=== PATIENT | male | born 1965 | race Caucasian/White ===

== ENCOUNTER 2022-08-16 15:48 | Inpatient (IN) | payer OTHER ==
[~2022-08-16] VITALS: Ht 170.2 cm; Wt 107.5 kg
[2022-08-16 15:55] VITALS: BP 109/67
--- NOTE | 2022-08-16 15:59 | NUR ---
PT AMBULATED TO BED 8
--- NOTE | 2022-08-16 16:09 | NUR ---
MD PERRY AT BEDSIDE FOR EVALUATION
[2022-08-16] MEDS ORDERED: DILTIAZEM 25 MG/5 ML VIAL IVP ONE ×2 (16:30→17:10)
[2022-08-16] MEDS ORDERED: NACL 0.9% 1,000 ML IV ONE (16:30)
--- NOTE | 2022-08-16 16:38 | NUR ---
XRAY AT BEDSIDE
[2022-08-16 16:40] LABS: BASOPHILS # (AUTO) 0.1 K/uL (0.00-0.22); BASOPHILS % (AUTO) 0.5 % (0.0-2.0); EOSINOPHILS # (AUTO) 0.1 K/uL (0-0.4); EOSINOPHILS % (AUTO) 1.1 % (0.0-4.0); HEMATOCRIT 45.9 % (36-52); HEMOGLOBIN 15.1 g/dL (12.0-18.0); LYMPHOCYTES # (AUTO) 1.8 K/uL (2.0-11.5); LYMPHOCYTES % (AUTO) 18.9 % (20.5-51.1); MEAN CORPUSCULAR HEMOGLOBIN 31 pg (27-31); MEAN CORPUSCULAR HGB CONC 33 g/dL (33-37); MEAN CORPUSCULAR VOLUME 93.4 fL (80-94); MONOCYTES % (AUTO) 9.8 % (1.7-9.3); NEUTROPHILS # (AUTO) 6.7 K/uL (1.8-7.7); NEUTROPHILS % (AUTO) 69.7 % (42.2-75.2); PLATELET COUNT (AUTO) 266 K/uL (140-450); RED BLOOD CELL COUNT(AUTO) 4.92 MIL/uL (4.20-6.10); RED CELL DISTRIBUTION WIDTH 14.2 % (11.6-13.7); WHITE BLOOD COUNT (AUTO) 9.7 K/uL (4.8-10.8)
--- NOTE | 2022-08-16 16:40 | NUR ---
pt swabbed for covid(leigha). walked and handed to lab
[2022-08-16 16:55] LABS: ANION GAP 13.9 (8-16); CARBON DIOXIDE 27.5 mmol/L (21-32); POTASSIUM 4.4 mmol/L (3.5-5.1)
[2022-08-16] MEDS ORDERED: LEVO0.124 PO (17:17)
[2022-08-16] MEDS ORDERED: SYN.1 PO (17:17)
[2022-08-16] MEDS ORDERED: HYDROcodone/APAP 5/325 MG 1 TAB TAB PO PRN ×2 (18:00→18:15)
[2022-08-16] MEDS ORDERED: MAG SULF 2000 MG/WATER PREMIX 50 ML IV PRN ×2 (18:00→18:15)
[2022-08-16] MEDS ORDERED: MAGNESIUM OXIDE 400 MG TAB PO PRN ×2 (18:00→18:15)
[2022-08-16] MEDS ORDERED: ONDANSETRON 4 MG/2 ML VIAL IVP PRN ×2 (18:00→18:15)
[2022-08-16] MEDS ORDERED: ACETAMINOPHEN 325 MG TAB PO PRN ×2 (18:00→18:15)
[2022-08-16] MEDS ORDERED: POTASSIUM CHLORIDE 10 MEQ TABER PO PRN ×2 (18:00→18:15)
[2022-08-16] MEDS ORDERED: KCL 20 MEQ IN 100 mL PREMIX 200 ML IV PRN ×2 (18:00→18:15)
[2022-08-16] MEDS ORDERED: MORPHINE SULFATE 4 MG/ML SYR IVP PRN ×2 (18:00→18:15)
--- NOTE | 2022-08-16 19:32 | NUR ---
PT RESTING IN BED 8 WAITING FOR A TELE ROOM ON THE FLOOR.
--- NOTE | 2022-08-16 20:30 | NUR ---
[facility]. PATIENT IS ALERT ORIENTED X 4. NO COMPLAIN OF PAIN AT THIS TIME. PIV ON LEFT ANTECUBITAL INTACT AND PATENT. WILL CONTINUE TO MONITOR
[2022-08-16] MEDS ORDERED: METOPROLOL 25 MG TAB PO SCH (21:00)
[2022-08-16] MEDS: METOPROLOL 25 MG TAB PO SCH (21:18)
[2022-08-17] VITALS: BP 108/68
[2022-08-17] MEDS ORDERED: DIGOXIN 0.25 MG/ML AMP IV SCH ×3 (00:35→12:00)
--- NOTE | 2022-08-17 01:15 | NUR ---
NEW ORDER OF DIGOXIN FOR INCREASING HEART RATE. WILL CONTINUE TO MONITOR
[2022-08-17 04:00] VITALS: BP 121/86
[2022-08-17 07:53] VITALS: BP 111/88
[2022-08-17 08:46] LABS: BASOPHILS % (AUTO) 0.5 % (0.0-2.0); EOSINOPHILS # (AUTO) 0.2 K/uL (0-0.4); EOSINOPHILS % (AUTO) 2.4 % (0.0-4.0); HEMATOCRIT 42.6 % (36-52); HEMOGLOBIN 13.6 g/dL (12.0-18.0); LYMPHOCYTES # (AUTO) 1.5 K/uL (2.0-11.5); LYMPHOCYTES % (AUTO) 19.9 % (20.5-51.1); MEAN CORPUSCULAR HEMOGLOBIN 30 pg (27-31); MEAN CORPUSCULAR HGB CONC 32 g/dL (33-37); MEAN CORPUSCULAR VOLUME 95.1 fL (80-94); MONOCYTES # (AUTO) 0.9 K/uL (0.8-1.0); NEUTROPHILS % (AUTO) 65.2 % (42.2-75.2); PLATELET COUNT (AUTO) 222 K/uL (140-450); RED BLOOD CELL COUNT(AUTO) 4.48 MIL/uL (4.20-6.10); RED CELL DISTRIBUTION WIDTH 14.3 % (11.6-13.7); WHITE BLOOD COUNT (AUTO) 7.7 K/uL (4.8-10.8)
[2022-08-17] MEDS: FUROSEMIDE 40 MG/4 ML VIAL IVP SCH ×2 (08:59→17:19)
[2022-08-17] MEDS: METOPROLOL 25 MG TAB PO SCH ×2 (09:00→21:02)
[2022-08-17] MEDS ORDERED: ECOTRIN 81 MG TABEC PO SCH (09:00)
[2022-08-17] MEDS ORDERED: ENOXAPARIN 40 MG/0.4 ML SYR SUBQ SCH ×2 (09:00)
[2022-08-17 09:04] LABS: ALBUMIN 2.8 g/dL (3.4-5.0); CARBON DIOXIDE 32.7 mmol/L (21-32); CREATININE 1.1 mg/dL (0.6-1.3); MAGNESIUM 1.8 mg/dL (1.8-2.4); POTASSIUM 4.7 mmol/L (3.5-5.1); TOTAL BILIRUBIN 0.6 mg/dL (0.0-1.0)
--- NOTE | 2022-08-17 09:32 | NUR ---
PATIENT HAS BEEN SCREENED AND CATEGORIZED LOW NUTRITION RISK. PATIENT WILL BE SEEN WITHIN 7 DAYS OF ADMISSION. 08/16/22-08/23/[address]
[2022-08-17 11:50] VITALS: BP 112/76
[2022-08-17 16:06] VITALS: BP 98/60
--- NOTE | 2022-08-17 19:25 | NUR ---
RECEIVED PATIENT FROM AM NURSE FOR CONTINUITY OF CARE.PT IS STABLE
[2022-08-17 20:00] VITALS: BP 118/89
[2022-08-17] MEDS ORDERED: ENOXAPARIN 100 MG/ML SYR SUBQ SCH (21:00)
[2022-08-18] VITALS: BP 109/76
--- NOTE | 2022-08-18 | NUR ---
PATIENT ASLLEP , NO DISTRESS NOTED
[2022-08-18 04:00] VITALS: BP 107/70
--- NOTE | 2022-08-18 04:00 | NUR ---
CHECK ON THE PATIENT AND NOTED TO HAVE SUDDEN ONSET OF SLURRED SPEECH AND CONFUSION , VITALS ARE WITHIN NORMAL LIMITS, ABLE TO FOLLOW SIMPLE COMMANDS. PAGED FAMILY INDEPENDENCE CASE MANAGER DOCTOR, AWAITING RESPONSE
--- NOTE | 2022-08-18 04:30 | NUR ---
PT STILL WITH SLURRED SPEECH AND CONFUSION.PT TRYING TO GET OUT OF BED, OBSERVED R FACIAL DROOPING AND R SIDE WEAKNESS. PAGED DOCTOR JAMAL FOR THE 2ND TIME. AWAITING CALL BACK.
--- NOTE | 2022-08-18 04:50 | NUR ---
DR BERRY CALLED BACK AND ORDERED CT HEAD STAT
--- NOTE | 2022-08-18 05:10 | NUR ---
DR BERRY CALLED AND ASKED FOR THE RESULT OF THE CT HEAD. MD MADE AWARE THAT THE PT IS STILL IN CT SCAN AT THIS TIME AND ALSO MADE AWARE THAT DR NEY SALMERON MD CAME TO ASSESS THE PATIENT BUT MD MADE AWARE THAT THE PATIENT IS IN CT SCAN.
[2022-08-18] MEDS ORDERED: ALTEPLASE 2 MG VIAL MC ONE ×3 (05:25→05:35)
--- NOTE | 2022-08-18 05:35 | NUR ---
MD READING THE CT SCAN OF THE BRAIN FOR THE PATIENT CALLED AND WANTED TO SPEAK WITH DR BERRY. PROVIDED THEM WITH DR BERRY'S EXCHANGE. DR BERRY ALSO CALLED THE DEPARTMENT AND MADE HIM AWARE THAT I GAVE HIS EXCHANGE PHONE NUMBER TO RADIOLOGIST READING THE CT SCAN. NO FURTHER ORDER GIVEN.
--- NOTE | 2022-08-18 06:26 | NUR ---
DR. BERRY CALLED ON THE PHONE; UPDATED ON PATIENT'S MEDICAL CONDITION AND ORDERED NOT GIVE THE THROMBOLYTIC THERAPY THAT HE ORDERED; CARRIED OUT.
[2022-08-18] MEDS ORDERED: ALTEPLASE 2 MG VIAL MC SCH (06:35)
--- NOTE | 2022-08-18 06:40 | NUR ---
TELE NEURO CONSULTATION DONE BY DR. FALK. AND HE SAID PATIENT NEEDS URGENT TRANSFER FOR HIGHER LEVEL OF CARE TO RULE OUT LARGE VESSEL OCCLUSSION AND ORDERED TO KEEP PATIENT'S BP HIGH AND EVEN PATIENT BP GOES HIGH 220/120 TO NOT GIVE ANY BP MEDS; CARRIED OUT.
--- NOTE | 2022-08-18 06:51 | NUR ---
CALLED TRANSFER [facility] [place] AND IS WAS TOLD WAS TO BE ADMITTED IN ICU 3 ROOM 270 AND PATIENT WILL HAVE TO REGISTER FIRST TO ER BEFORE [facility] CAN BRING THE PATIENT DIRECTLY TO ICU. UPPER CUTTER INFORMED AND AWARE.
--- NOTE | 2022-08-18 07:15 | NUR ---
[facility] REQUESTED IMMEDIATELY TO TRANSPORT THE PATIENT URGENTLY TO [facility]; AND PER [facility] PERSONNEL, [facility] WILL COME TO PICKED THE PATIENT IN 30 MINS. TRIED TO CALL ALSO THE PATIENT'S RADON INSPECTOR ON THE FACE SHEET [place] BUT IT LOOKS LIKE THE CONTACT NUMBER IS PATIENT'S OWN MOBILE PHONE NUMBER AND PATIENT HIMSELF IS UNABLE TO RECALL HIS CELL PHONE NUMBER NOR HE CAN GIVE THE PASSWORD NUMBER OF HIS CELLPHONE SO WE CAN CONTACT ANY FAMILY MEMBER.
--- NOTE | 2022-08-18 07:40 | NUR ---
REPORT GIVEN TO ZOE, THE RECEIVING RN OF [facility]. PATIENT'S LATEST V/S FOLLOWS 132/81 HR 129 ON AFIB WITH RVR RR 16/MIN S02 96% ON 2 LITERS . THE RECEIVING DOCTOR IS DR. ELENA HUNTER.
--- NOTE | 2022-08-18 07:43 | NUR ---
TRANS IN FROM TELEMETRY PER BED AFTER CT HEAD AND NECK WAS DONE URGENTLY DUE TO SUSPECTED STROKE. ASSISTED PATIENT IN ICU 3, HOOKED TO WELT SOLE LAYER SHOWS ON ATRIAL FIB HR 126/MIN. PATIENT IS ALERT, ABLE TO FOLLOW SIMPLE COMMANDS BUT HE HAS SLURRED SPEECH . BREATHING EVEN AND UNLABORED AT 2 LITERS 02/NC. HR 126/MIN BP 121/95 TEMP 97.5. PERIPHERAL LINE G 20 ON LEFT ARM AND SALINE LOCK G 22 ON RIGHT ARM. ABDOMEN IS SOFT, ACTIVE BOWEL SOUNDS. Addendum: 08/18/22 at 0759 by Jana Nielsen RN PATIENT WAS TRANS IN FROM TELE AT 0545H AND NOT ON 0757.
--- NOTE | 2022-08-18 08:02 | NUR ---
pt left in ambulance stable ,02nc on,belonging given to the ambulance personal david trevino, [email or web address]
== END 2022-08-18 08:00 | disposition critical access hospital (66) | DRG 46 ==
LOC: MED 15:48 → MTU 17:57 → MED 18:00 → MTU 18:52 → MIC 08-18 05:55
PROVIDERS: ADMIT Hospitalist; ATTEND Hospitalist
DX: I66.02 Occlusion and stenosis of left middle cerebral artery (principal); I50.41 Acute combined systolic (congestive) and diastolic (congestive) heart failure; I11.0 Hypertensive heart disease with heart failure; E03.9 Hypothyroidism, unspecified; I48.91 Unspecified atrial fibrillation; R29.710 NIHSS score 10; J45.909 Unspecified asthma, uncomplicated; J44.9 Chronic obstructive pulmonary disease, unspecified; G47.33 Obstructive sleep apnea (adult) (pediatric); Z20.822 Contact with and (suspected) exposure to COVID-19
CPT/HCPCS: 36415; 70450; 71045; 80048; 80053; 82948; 83735; 83880; 84443; 84484; 85025; 87081; 93005; 96361; 96374; 99291; J1160; J1650; J1940; J2997; J3490; Q0092